=== PATIENT | female | born 1990 | race Two or more races ===

== ENCOUNTER 2021-11-21 01:30 | Emergency (ER) | payer OTHER ==
[~2021-11-21] VITALS: Ht 165.1 cm; Wt 63.5 kg
--- NOTE | 2021-11-21 01:40 | NUR ---
Dr Horton at bedside, MSE in progress
[2021-11-21] MEDS ORDERED: MORPHINE SULFATE 4 MG/1 ML DISP.SYRIN IV ONE (01:45)
[2021-11-21] MEDS ORDERED: ONDANSETRON 4 MG/2 ML VIAL IV ONE (01:45)
[2021-11-21] MEDS ORDERED: IV NORMAL SALINE 500 ML BAG IV ONE (01:45)
[2021-11-21] MEDS ORDERED: MORPHINE SULFATE 4 MG/1 ML DISP.SYRIN ONE (01:46)
[2021-11-21] MEDS ORDERED: ONDANSETRON 4 MG/2 ML VIAL ONE (01:46)
[2021-11-21 01:56] LABS: *BILIRUBIN,URIN NEGATIVE (NEGATIVE); *BLOOD, URINE 1+ (NEGATIVE); *CLARITY,URINE CLEAR (CLEAR); *COLOR,URINE YELLOW (YELLOW); *KETONES,URINE NEGATIVE (NEGATIVE); LEUKOCYTE ESTERASE ,URINE NEGATIVE (NEGATIVE); NITRITE, URINE NEGATIVE (NEGATIVE); UGLUCOSE NEGATIVE (NEGATIVE)
[2021-11-21 01:59] LABS: MEAN CORPUSCULAR HEMOGLOBIN 30.1 uug (24.7-32.8); MEAN CORPUSCULAR VOLUME 87.2 fL (75.5-95.3); PLATELET COUNT (AUTO) 236 K/uL (179-408)
[2021-11-21] MEDS ORDERED: KETOROLAC TROMETHAMINE 15 MG INJ IVP ONE (02:00)
[2021-11-21] MEDS ORDERED: HYDROCODONE/APAP 5-325MG TABLET PO ONE (02:00)
[2021-11-21 02:01] LABS: CARBON DIOXIDE 26 mmol/L (21-32); CHLORIDE 101 mmol/L (98-107); CREATININE 0.8 mg/dL (0.6-1.3); GLUCOSE 116 mg/dL (74-106); POTASSIUM 3.4 mmol/L (3.5-5.1); UREA NITROGEN, BLOOD 10 mg/dL (7-18)
[2021-11-21 02:07] LABS: ALANINE AMINOTRANSFERASE 14 U/L (14-59); ALKALINE PHOSPHATASE 49 U/L (50-136); ASPARTATE AMINOTRANSFERASE 12 U/L (15-37); BILIRUBIN,TOTAL 0.3 mg/dL (0.2-1.0); TOTAL PROTEIN, SERUM 7.2 g/dL (6.4-8.2)
[2021-11-21 02:14] LABS: LIPASE 160 U/L (73-393)
[2021-11-21] MEDS ORDERED: SWABABLE VALVE TRANSFER SET EA MC ONE (02:25)
[2021-11-21] MEDS ORDERED: IV NORMAL SALINE 250 ML IV ONE (02:25)
[2021-11-21] MEDS ORDERED: IOHEXOL 350 100 ML INFUS..BTL ONE (02:25)
--- NOTE | 2021-11-21 02:31 | NUR ---
pt taken to CT
--- NOTE | 2021-11-21 02:45 | NUR ---
pt returned from CT
[2021-11-21] MEDS ORDERED: METOCLOPRAMIDE HCL 10 MG/2 ML VIAL ONE (03:35)
[2021-11-21 03:37] LABS: BACTERIA,URINE FEW /HPF (NONE SEEN); SQUAMOUS EPITHELIAL CELL,UR MODERATE /HPF (NONE SEEN); WBC,URINE 0-3 /HPF (0-3)
[2021-11-21] MEDS ORDERED: METOCLOPRAMIDE HCL 10 MG/2 ML VIAL IV ONE (03:45)
[2021-11-21] MEDS ORDERED: HYDROCODONE/APAP 5-325MG TABLET ONE (04:46)
[2021-11-21] MEDS ORDERED: ACETAMINOPHEN 325 MG TABLET PO ONE (05:00)
[2021-11-21] MEDS ORDERED: CEFTRIAXONE 1 G in IV DEXTROSE 5% 50 ML IV ONE (05:00)
[2021-11-21] MEDS ORDERED: CEFTRIAXONE /D5W 50ML IVPB **ER PYXIS IV ONE (05:02)
[2021-11-21] MEDS ORDERED: ACETAMINOPHEN 325 MG TABLET ONE (05:02)
--- NOTE | 2021-11-21 05:26 | NUR ---
Ultrasound at bedside.
[2021-11-21] MEDS ORDERED: CIPR-262 PO (05:31)
--- NOTE | 2021-11-21 05:55 | NUR ---
pt is ready to be discharged. called pt's mother to pick her up
--- NOTE | 2021-11-21 06:23 | NUR ---
Patient discharged to home in stable condition. Written and verbal after care instructions given. Patient verbalizes understanding of instructions. Stressed follow up or return to ER for worsening s/s. pt ambulated wtih steady gait. denies pain. AOx4
[2021-11-21 06:24] VITALS: BP 122/65
== END 2021-11-21 06:25 | disposition home or self-care (01) ==
LOC: ER 01:42
DX: N83.201 Unspecified ovarian cyst, right side (principal); Z87.442 Personal history of urinary calculi; R94.4 Abnormal results of kidney function studies
CPT/HCPCS: 99285; 74177; 96365; 96375; 76856; 96361; 80053; 81001; 83690; 85025; 84702; 36415; J0696; J2765; J2405; Q9967; J2270; J7040; A4663

== ENCOUNTER 2022-02-05 00:49 | Emergency (ER) | payer OTHER ==
[~2022-02-05] VITALS: Ht 165.1 cm; Wt 59.0 kg
[~2022-02-05 00:49] MED LIST: CIPR-262 PO
[2022-02-05] MEDS ORDERED: ONDANSETRON ODT 4 MG TAB.RAPDIS SL ONE (02:00)
[2022-02-05] MEDS ORDERED: OXYCODONE/APAP 5-325 MG TABLET PO ONE (02:00)
[2022-02-05] MEDS ORDERED: OXYCODONE/APAP 5-325 MG TABLET ONE (02:10)
[2022-02-05] MEDS ORDERED: ONDANSETRON ODT 4 MG TAB.RAPDIS ONE (02:10)
[2022-02-05 02:11] LABS: MEAN CORPUSCULAR HEMOGLOBIN 29.8 uug (24.7-32.8); MEAN CORPUSCULAR VOLUME 87.7 fL (75.5-95.3); PLATELET COUNT (AUTO) 231 K/uL (179-408)
[2022-02-05] MEDS ORDERED: IV LACTATED RINGERS SOLUTION 1,000 ML IV ONE (02:15)
[2022-02-05 02:17] LABS: *BLOOD, URINE 2+ (NEGATIVE); *CLARITY,URINE CLEAR (CLEAR); *COLOR,URINE YELLOW (YELLOW); *KETONES,URINE 3+ (NEGATIVE); *UROBILINOGEN,URINE 0.2 E.U./dl (NORMAL); LEUKOCYTE ESTERASE ,URINE NEGATIVE (NEGATIVE); NITRITE, URINE NEGATIVE (NEGATIVE); UGLUCOSE NEGATIVE (NEGATIVE)
[2022-02-05 02:19] LABS: *BILIRUBIN,URIN 1+ (NEGATIVE)
[2022-02-05 02:27] LABS: CREATININE 0.7 mg/dL (0.6-1.3); POTASSIUM 3.7 mmol/L (3.5-5.1)
[2022-02-05 02:37] LABS: BILIRUBIN,DIRECT 0.1 mg/dL (0.0-0.2); BILIRUBIN,TOTAL 0.7 mg/dL (0.2-1.0); TOTAL PROTEIN, SERUM 7.5 g/dL (6.4-8.2)
[2022-02-05 02:52] LABS: BACTERIA,URINE NONE SEEN /HPF (NONE SEEN); SQUAMOUS EPITHELIAL CELL,UR FEW /HPF (NONE SEEN)
[2022-02-05 02:55] LABS: *URINE HCG, QUAL NEGATIVE (NEGATIVE)
[2022-02-05] MEDS ORDERED: ONDA4TAB11 PO (04:11)
[2022-02-05] MEDS ORDERED: OXYC-128 PO (04:11)
[2022-02-05 04:30] VITALS: BP 112/80
--- NOTE | 2022-02-05 04:31 | NUR ---
Patient discharged to home in stable condition. Written and verbal after care instructions given. Patient verbalizes understanding of instructions. Stressed follow up or return to ER for worsening s/s.
--- NOTE | 2022-03-08 03:00 | NUR ---
LR completed at this time.
== END 2022-02-05 04:31 | disposition home or self-care (01) ==
LOC: ER 00:52
DX: G89.29 Other chronic pain (principal); R10.33 Periumbilical pain; R11.2 Nausea with vomiting, unspecified; Z87.442 Personal history of urinary calculi
CPT/HCPCS: 99285; 76700; 96360; 80076; 80048; 81001; 84703; 83690; 85025; 85730; 87086; 36415; 76856; J7120; A4663; Q0162